=== PATIENT | female | born 1955 | race Caucasian/White ===

== ENCOUNTER 2017-07-16 00:22 | Emergency (ER) | payer MEDICAID, MEDICARE, OTHER ==
[~2017-07-16] VITALS: Ht 172.7 cm; Wt 108.9 kg
--- NOTE | 2017-07-16 00:30 | NUR ---
to bed 3 bib [facility] ambulance c/o cough with bilateral breast pain when coughing x9 weeks. pt aaox4 no acute distress noted, resp even and unlabored. lung sounds clear bilaterally on auscultation. er md at bedside to jeniffer pt.
[2017-07-16] MEDS ORDERED: ALBUTEROL FS 2.5 MG/0.5 ML VIAL.NEB NEB ONE (01:00)
[2017-07-16] MEDS ORDERED: ALBUTEROL FS 2.5 MG/0.5 ML VIAL.NEB ONE (01:01)
--- NOTE | 2017-07-16 01:01 | NUR ---
RT AT BEDSIDE FOR HHN TX.
--- NOTE | 2017-07-16 02:01 | NUR ---
ETA 90 MIN; TRIP #[id number]
--- NOTE | 2017-07-16 03:58 | NUR ---
TRANSPORT AT BEDSIDE REPORT GIVEN TO EMT.
[2017-07-16 04:10] VITALS: BP 121/65
== END 2017-07-16 04:10 | disposition home or self-care (01) ==
LOC: ER 00:25
DX: R05 Cough (principal); Z88.0 Allergy status to penicillin; Z88.2 Allergy status to sulfonamides; Z88.8 Allergy status to other drugs, medicaments and biological substances; Z91.013 Allergy to seafood
CPT/HCPCS: 71010; 94640; 99283; A4606; Z7610

== ENCOUNTER 2019-05-30 00:52 | Emergency (ER) | payer MEDICAID, OTHER ==
[~2019-05-30] VITALS: Ht 170.2 cm; Wt 107.0 kg
--- NOTE | 2019-05-30 01:00 | NUR ---
[facility]IBA FOR EVALUATION OF LOWER BACK AND BLE PAIN AND INABILITY TO AMBULATE X 2 WEEKS.
[2019-05-30] MEDS ORDERED: HYDROCODONE/APAP 10/325MG 1 EA TABLET ONE (01:28)
[2019-05-30] MEDS ORDERED: ONDANSETRON 4 MG TAB.RAPDIS ONE (01:28)
[2019-05-30] MEDS ORDERED: ONDANSETRON 4 MG TAB.RAPDIS SL ONE (01:30)
[2019-05-30] MEDS ORDERED: HYDROCODONE/APAP 10/325MG 1 EA TABLET PO ONE (01:30)
--- NOTE | 2019-05-30 01:31 | NUR ---
PT WAS PICKED UP FOR CT
[2019-05-30 03:16] LABS: BASOPHILS # (AUTO) 0.1 /CMM (0.0-0.2); BASOPHILS % (AUTO) 0.8 % (0.0-2.0); EOSINOPHILS % (AUTO) 2.7 % (0.0-6.0); HEMATOCRIT 41 % (33-45); HEMOGLOBIN 14.4 g/dL (11.5-14.8); LYMPHOCYTES % (AUTO) 22.6 % (20.0-44.0); MEAN CORPUSCULAR HGB CONC 35 g/dl (31.0-36.0); MEAN CORPUSCULAR VOLUME 95 fL (82-100); MONOCYTES # (AUTO) 0.7 /CMM (0.1-1.30); MONOCYTES % (AUTO) 7.5 % (2.0-12.0); NEUTROPHILS # (AUTO) 5.9 /CMM (1.8-8.9); NEUTROPHILS % (AUTO) 66.4 % (43.0-81.0); PLATELET COUNT (AUTO) 208 /CMM (150-450); RED BLOOD CELL COUNT(AUTO) 4.34 MIL/uL (4.0-5.2); WHITE BLOOD COUNT (AUTO) 8.8 K/uL (4.3-11.0)
--- NOTE | 2019-05-30 03:30 | NUR ---
18G PIV STARTED ON RAC W/ GOOD BLOOD DRAW.
[2019-05-30 03:37] LABS: CALCIUM, SERUM 9.3 mg/dL (8.5-10.1); CREATININE 0.8 mg/dL (0.6-1.3); POTASSIUM 3.4 mmol/L (3.5-5.1)
[2019-05-30] MEDS ORDERED: MORPHINE SULFATE INJ 2 MG/ML DISP.SYRIN ONE (03:49)
[2019-05-30] MEDS ORDERED: ONDANSETRON HCL/PF 4 MG/2 ML VIAL ONE (03:49)
[2019-05-30] MEDS ORDERED: POTASSIUM CHLORIDE 20 MEQ TAB.PRT.SR PO ONE ×2 (03:49→04:00)
[2019-05-30] MEDS ORDERED: MORPHINE SULFATE INJ 2 MG/ML DISP.SYRIN IV ONE (04:00)
[2019-05-30] MEDS ORDERED: ONDANSETRON HCL/PF - ER 4 MG/2 ML VIAL IV ONE (04:00)
--- NOTE | 2019-05-30 04:40 | NUR ---
PT ACCEPTED AT [facility] ROOM 303-A. NURSE IS JAYLAN. NUMBER FOR REPORT . ACCEPTING PA IS TRAY. ETA FOR AMBULANCE IS [id number] AND COMPANY WILL BE [employer].
--- NOTE | 2019-05-30 05:17 | NUR ---
REPORT GIVEN TO JAYLAN AT [facility]
--- NOTE | 2019-05-30 05:29 | NUR ---
PT WAS PICKED UP BY [facility] IN STABLE CONDITION AND WAS TRANSFERRED TO [facility]
[2019-05-30 05:30] VITALS: BP 133/75
== END 2019-05-30 05:34 | disposition short-term general hospital (02) ==
LOC: ER 00:53
DX: M48.061 Spinal stenosis, lumbar region without neurogenic claudication (principal); E87.6 Hypokalemia; G20 Parkinson's disease; G62.9 Polyneuropathy, unspecified; F31.9 Bipolar disorder, unspecified; I10 Essential (primary) hypertension; E78.5 Hyperlipidemia, unspecified; Z88.0 Allergy status to penicillin; Z88.2 Allergy status to sulfonamides; Z88.8 Allergy status to other drugs, medicaments and biological substances; Z91.013 Allergy to seafood
CPT/HCPCS: 36415; 71045; 72131; 80048; 85025; 85730; 93005; 96374; 96375; 99285; J2270; J2405; Q0162

== ENCOUNTER 2019-08-03 03:30 | Emergency (ER) | payer OTHER ==
[~2019-08-03] VITALS: Ht 170.2 cm; Wt 105.2 kg
--- NOTE | 2019-08-03 03:35 | NUR ---
PT BIB PA WITH A C/O RT HIP PAIN S/P BACK SX ON L3-5 2 MONTHS AGO. PT STATED THAT THE PAIN IS PROGRESSIVELY GETTING WORSE AND IS UNBEARABLE TODAY. PT STATED THAT SHE HAD TYLENOL 1GM LAST NIGHT AT 1999. PT MOVED FROM THE [facility]ULANCE [facility] TO THE ER [facility] WITH ASSISTANCE. PT IS C/O WEIGHT BEARING PAIN ON THE RT HIP AND PAIN WITH PALPATION.
--- NOTE | 2019-08-03 03:45 | NUR ---
PT LEFT FOR CT VIA [facility]
[2019-08-03] MEDS: HYDROCODONE/APAP 5/325MG 1 EACH TABLET PO ONE (04:00)
--- NOTE | 2019-08-03 04:05 | NUR ---
PT RETURNED FROM CT.
[2019-08-03] MEDS ORDERED: HYDROCODONE/APAP 5/325MG 1 EACH TABLET ONE (04:24)
--- NOTE | 2019-08-03 04:26 | NUR ---
PT REC'D MEDICATION ORDERED.
--- NOTE | 2019-08-03 05:50 | NUR ---
[facility] ETA 0900.
--- NOTE | 2019-08-03 06:18 | NUR ---
PT APPEARS TO BE RESTING COMFORTABLY WITH NO S/S OF PAIN OR DISTRESS. WILL CONTINUE TO MONITOR THE PT.
--- NOTE | 2019-08-03 06:19 | NUR ---
BREAKFAST TRAY ORDERED.
--- NOTE | 2019-08-03 06:55 | NUR ---
PT AMBULATED TO THE BATHROOM WITH ASSISTANCE.
--- NOTE | 2019-08-03 07:08 | NUR ---
PT WAS ASSISTED BACK TO ER 4.
--- NOTE | 2019-08-03 07:25 | NUR ---
REPORT GIVEN TO JOHANA ZARCO FOR [facility].
--- NOTE | 2019-08-03 07:28 | NUR ---
RECEIVED REPORT FROM ALEJANDRINA ALVAREZ FOR [facility], PT IS AAOX3, NOT IN RESPIRATORY DISTRESS, V/S STABLE, AWAITING [facility]ANZ FOR PT DISCHARGED AND TRANSPORT.
[2019-08-03 09:50] VITALS: BP 129/72
--- NOTE | 2019-08-03 09:50 | NUR ---
REPORT GIVEN TO EMT FOR PT TRANSFER.
== END 2019-08-03 09:51 ==
LOC: ER 03:32
DX: M16.11 Unilateral primary osteoarthritis, right hip (principal); G20 Parkinson's disease; I10 Essential (primary) hypertension; F31.9 Bipolar disorder, unspecified; F41.9 Anxiety disorder, unspecified; E03.9 Hypothyroidism, unspecified; Z88.0 Allergy status to penicillin; Z88.2 Allergy status to sulfonamides; Z88.6 Allergy status to analgesic agent; Z91.013 Allergy to seafood; Z88.9 Allergy status to unspecified drugs, medicaments and biological substances
CPT/HCPCS: 73700-TC

== ENCOUNTER 2019-11-13 23:18 | Emergency (ER) | payer OTHER ==
[~2019-11-13] VITALS: Ht 170.2 cm; Wt 104.3 kg
--- NOTE | 2019-11-13 23:30 | NUR ---
SARAH FROM [facility] C/O RLQ PAIN, PELVIC PAIN WITH BLEEDING X2 WEEKS TOOK MOTRIN 600MG @1800 WITH MINIMAL RELIEF. PLACED ON MONITOR AND PULSE OX. VSS. AWAITING MD FOR EVAL.
[2019-11-13] MEDS ORDERED: MORPHINE SULFATE INJ 4 MG/ML DISP.SYRIN ONE (23:43)
[2019-11-13] MEDS ORDERED: ONDANSETRON HCL/PF 4 MG/2 ML VIAL ONE (23:43)
[2019-11-14] MEDS ORDERED: MORPHINE SULFATE INJ 2 MG/ML DISP.SYRIN IV ONE
[2019-11-14] MEDS ORDERED: IV NS 0.9% 1,000 ML BAG IV ONE
[2019-11-14] MEDS ORDERED: ONDANSETRON HCL/PF 4 MG/2 ML VIAL IVP ONE
[2019-11-14 00:04] LABS: APPEARANCE,URINE Clear (CLEAR); BILIRUBIN,URINE Negative (NEGATIVE); BLOOD, URINE Trace-intact Ery/uL (NEGATIVE); COLOR,URINE Yellow (YELLOW); KETONES,URINE Negative (NEGATIVE); LEUKOCYTE ESTERASE ,URINE Moderate (NEGATIVE); NITRITE, URINE Positive (NEGATIVE); PROTEIN,URINE Negative (NEGATIVE); UGLUCOSE Negative (NEGATIVE); UROBILINOGEN,URINE 0.2 EU/dL (0.2)
[2019-11-14 00:06] LABS: BASOPHILS # (AUTO) 0.1 /CMM (0.0-0.2); BASOPHILS % (AUTO) 0.7 % (0.0-2.0); EOSINOPHILS % (AUTO) 4.6 % (0.0-6.0); HEMATOCRIT 40 % (33-45); HEMOGLOBIN 13.3 g/dL (11.5-14.8); LYMPHOCYTES # (AUTO) 2.2 /CMM (0.8-4.8); LYMPHOCYTES % (AUTO) 27.3 % (20.0-44.0); MEAN CORPUSCULAR HGB CONC 34 g/dl (31.0-36.0); MEAN CORPUSCULAR VOLUME 91 fL (82-100); MONOCYTES # (AUTO) 0.6 /CMM (0.1-1.30); MONOCYTES % (AUTO) 7.1 % (2.0-12.0); NEUTROPHILS # (AUTO) 4.8 /CMM (1.8-8.9); NEUTROPHILS % (AUTO) 60.3 % (43.0-81.0); PLATELET COUNT (AUTO) 248 /CMM (150-450); RED BLOOD CELL COUNT(AUTO) 4.36 MIL/uL (4.0-5.2); WHITE BLOOD COUNT (AUTO) 7.9 K/uL (4.3-11.0)
--- NOTE | 2019-11-14 00:10 | NUR ---
LABS AND URINE SENT
[2019-11-14 00:16] LABS: CALCIUM, SERUM 9.2 mg/dL (8.5-10.1); CREATININE 0.8 mg/dL (0.6-1.3); POTASSIUM 3.8 mmol/L (3.5-5.1)
[2019-11-14 00:21] LABS: ALBUMIN 3.4 g/dL (3.4-5.0); BILIRUBIN,TOTAL 0.2 mg/dL (0.2-1.0); TOTAL PROTEIN, SERUM 7.1 g/dL (6.4-8.2)
[2019-11-14 00:23] LABS: BACTERIA,URINE Many /HPF (None Seen); SQUAMOUS EPITHELIAL CELL,UR Few /HPF (None Seen); WBC,URINE 21-50 /HPF (0-3)
--- NOTE | 2019-11-14 00:53 | NUR ---
back from ct
--- NOTE | 2019-11-14 01:15 | NUR ---
Patient is resting comfortably in bed. Easily aroused. VSS.
[2019-11-14] MEDS ORDERED: CEFTRIAXONE 1GM BAG (ER ONLY) 50 ML IV ONE (01:21)
[2019-11-14] MEDS ORDERED: PHENAZOPYRIDINE HCL 200 MG TABLET ONE (01:21)
[2019-11-14] MEDS ORDERED: CEFTRIAXONE 1GM BAG (ER ONLY) 1 GM/50 ML PIGGYBACK IV ONE (01:30)
[2019-11-14] MEDS ORDERED: PHENAZOPYRIDINE HCL 200 MG TABLET PO ONE (01:30)
--- NOTE | 2019-11-14 01:37 | NUR ---
CALL THE CAR CALLED FOR TRANPORT. PENDING ETA
--- NOTE | 2019-11-14 03:38 | NUR ---
Patient is resting comfortably in bed with eyes closed. Easily aroused. VSS
--- NOTE | 2019-11-14 03:49 | NUR ---
CALLED LAURIE HINES TO GIVE REPORT. NO ANSWER
--- NOTE | 2019-11-14 05:00 | NUR ---
PT WHEELED TO THE BATHROOM. ASSISTED BY [place]
--- NOTE | 2019-11-14 05:07 | NUR ---
PT WHEELED BACK TO BED
--- NOTE | 2019-11-14 07:15 | NUR ---
REPORT GIVEN TO LAURIE TATE
--- NOTE | 2019-11-14 07:24 | NUR ---
REPORT GIVEN TO LINDA. PT STABLE FOR TRANSFER
[2019-11-14 07:31] VITALS: BP 121/89
--- NOTE | 2019-11-14 07:31 | NUR ---
Patient discharged to facility in stable condition. Written and verbal after care instructions given. Patient verbalizes understanding of instruction.
== END 2019-11-14 07:32 ==
LOC: ER 23:25
DX: N39.0 Urinary tract infection, site not specified (principal); I10 Essential (primary) hypertension; F41.9 Anxiety disorder, unspecified; E03.9 Hypothyroidism, unspecified; G20 Parkinson's disease; Z88.0 Allergy status to penicillin; Z88.2 Allergy status to sulfonamides; Z88.8 Allergy status to other drugs, medicaments and biological substances; Z91.013 Allergy to seafood
CPT/HCPCS: 36415; 74176; 80048; 80076; 81001; 85025; 85730; 87086; 96365; 96375; 99285; J0696; J2270; J2405; J7030; 81000-TC

== ENCOUNTER 2020-07-02 00:39 | Emergency (ER) | payer OTHER ==
[~2020-07-02] VITALS: Ht 170.2 cm; Wt 127.0 kg
--- NOTE | 2020-07-02 00:52 | NUR ---
RECEIVED PATIENT FROM [facility], A/0 X3, COMPLAINTS OF RIGHT HIP PAIN, PAIN SCALE OF 9/10, AMBULATORY WITH ASSIST.
[2020-07-02] MEDS ORDERED: MORPHINE SULFATE INJ 2 MG/ML DISP.SYRIN IM ONE (01:00)
[2020-07-02] MEDS ORDERED: MORPHINE SULFATE INJ 4 MG/ML DISP.SYRIN ONE (01:17)
--- NOTE | 2020-07-02 01:35 | NUR ---
TRANSPORT CALLED ([facility]) ETA [id number]
--- NOTE | 2020-07-02 02:41 | NUR ---
REPORT GIVEN TO GIRISH HILL AND LAURIE HINES (FACILITY)
[2020-07-02 02:57] VITALS: BP 134/78
== END 2020-07-02 03:00 ==
LOC: ER 00:41
DX: G89.29 Other chronic pain (principal); F17.200 Nicotine dependence, unspecified, uncomplicated; I10 Essential (primary) hypertension; F41.9 Anxiety disorder, unspecified; F31.9 Bipolar disorder, unspecified; E03.9 Hypothyroidism, unspecified; G62.9 Polyneuropathy, unspecified; M79.7 Fibromyalgia; G20 Parkinson's disease; Z88.0 Allergy status to penicillin; Z88.2 Allergy status to sulfonamides; Z88.8 Allergy status to other drugs, medicaments and biological substances; Z91.013 Allergy to seafood
CPT/HCPCS: 96372; 99283; J2270

== ENCOUNTER 2021-07-06 00:16 | Emergency (ER) | payer MEDICARE, OTHER ==
[~2021-07-06] VITALS: Ht 172.7 cm; Wt 113.9 kg
--- NOTE | 2021-07-06 00:28 | NUR ---
PT AAOX4. [facility]IBRA FROM [facility]. C/O LOWER BACK PAIN X4 WEEKS. PER RA, PT FELL 4 WEEKS AGO, SEEN BY PMD, NO INJURY OR FRACTURE. PT STARTED HAVING LOWER BACK PAIN X1 HR FLAME HARDENER. PLACED IN BED 2 ON MONITOR AND PULSE OX. AWAITING ER MD FOR EVAL.
--- NOTE | 2021-07-06 00:29 | NUR ---
LAURIE LOGAN: [id number] [facility] # [phone]
[2021-07-06] MEDS ORDERED: MORPHINE SULFATE INJ 2 MG/ML DISP.SYRIN ONE (00:42)
[2021-07-06] MEDS ORDERED: MORPHINE SULFATE INJ 4 MG/ML DISP.SYRIN ONE ×2 (00:43→10:57)
--- NOTE | 2021-07-06 00:45 | NUR ---
RADIOLOGY AT BEDSIDE
[2021-07-06] MEDS ORDERED: MORPHINE SULFATE INJ 2 MG/ML DISP.SYRIN IM ONE (01:00)
--- NOTE | 2021-07-06 01:48 | NUR ---
CALLED [facility] FOR X RAY READ
--- NOTE | 2021-07-06 02:21 | NUR ---
CALLED LAURIE HINES AND GAVE REPORT TO ALBERT
--- NOTE | 2021-07-06 02:51 | NUR ---
CONFIRMATION NUMBER IS [id number]# [facility] AWAITING A CALL BACK WHEN HE HAS A VENDOR AND ETA FOR PT TRANSPORT.
--- NOTE | 2021-07-06 05:29 | NUR ---
called call the car and spoke to Lucita. the staff are still working on the transportation.
--- NOTE | 2021-07-06 05:49 | NUR ---
[facility] IS TO BE HERE AT 1600 FOR DISCHARGE TRANSPORT BACK TO FACILITY. WILL CALL IF SOONER ETA BECOMES AVAILABLE.
[2021-07-06] MEDS ORDERED: MORPHINE SULFATE INJ 2 MG/ML DISP.SYRIN IV ONE (10:30)
--- NOTE | 2021-07-06 10:44 | NUR ---
ADVISED PT AND EXPLAINED WE ARE ARRANGING THE TRANSPORT FROM HOSPITAL TO [facility], GIVEN WATER AND WARM BLANKET, MADE COMFORTABLE WHILE WAITING FOR THE TRANSPORT RIDE TO FACILITY
--- NOTE | 2021-07-06 11:10 | NUR ---
MD PEDERSEN CARRIED OUT MORPHINE TO TREAT PAIN, NO ADVERSE SIDE EFFECTS NOTED, TOLERATED WELL AND RESTING PEACEFULLY IN BED UNTIL D/C. EXPLAINED WE ARE AWAITING THE TRANSPORT AT THIS TIME AND SHE WILL BE GOING TO [facility]UST[facility] FACILITY SOON POSSIBLE, MADE COMFORTABLE, CALL LIGHT IN REACH, HELPED DRINK WATER.
--- NOTE | 2021-07-06 13:18 | NUR ---
CALLED [id number] [phone] [facility] WILL TRANSPORT AT 1430 PER CRYSTAL.
--- NOTE | 2021-07-06 15:03 | NUR ---
CALLED [facility] [phone] NEW ETA 1545 PER MAJOR.
--- NOTE | 2021-07-06 15:58 | NUR ---
[facility] arrived 1555, patient brief cleaned and changed, provided water and cranberry juice no aspiration noted, refused to eat breakfast and lunch, encouraged fluids compliant, safe transfer from hospital bed to [facility] and to ambulance vehicle with 2 person transfer. her permanent residence of the [facility] notified and prepared for her return.
[2021-07-06 16:03] VITALS: BP 138/82
== END 2021-07-06 16:04 ==
LOC: ER 00:17
DX: G89.29 Other chronic pain (principal); M25.552 Pain in left hip; E66.01 Morbid (severe) obesity due to excess calories; Z68.38 Body mass index [BMI] 38.0-38.9, adult; F41.9 Anxiety disorder, unspecified; E03.9 Hypothyroidism, unspecified; G20 Parkinson's disease; M79.7 Fibromyalgia; F17.200 Nicotine dependence, unspecified, uncomplicated; Z88.0 Allergy status to penicillin; Z88.2 Allergy status to sulfonamides; Z88.8 Allergy status to other drugs, medicaments and biological substances; Z91.013 Allergy to seafood
CPT/HCPCS: 73503; 96372; 96374; 99285; J2270 ×3; 73502

== ENCOUNTER 2022-02-20 04:37 | Emergency (ER) | payer MEDICARE, OTHER ==
[~2022-02-20] VITALS: Ht 170.2 cm; Wt 79.4 kg
[2022-02-20 04:40] VITALS: BP 142/61
--- NOTE | 2022-02-20 04:42 | NUR ---
Note katlynone in EDM - 02/20/22 at 0456 by MEGAN BIBS C/O DIFFUSED ABDOMINAL PAIN SINCE 12AM. -N/V/D +HEADACHE. 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 PATIENT ALERT AND ORIENTED X3. AMBULATORY WITH NON LABORED BREATING IN BED 02 ON MONITOR AND POX, AWAITING MD MORENO.
--- NOTE | 2022-02-20 04:46 | NUR ---
Skinny dorman in [facility] - 02/20/22 at 0456 by MEGAN MD AT BEDSIDE
--- NOTE | 2022-02-20 05:13 | NUR ---
CALLED [facility] FOR TRANSPORT , ETA 40MIN.
--- NOTE | 2022-02-20 05:42 | NUR ---
[facility] DELAYED 0730 FOR PICKUP.
--- NOTE | 2022-02-20 06:49 | NUR ---
PT PICKED UP BY [facility] FOR TRANSPORT BACK TO FACILITY. VSS.
== END 2022-02-20 06:50 | disposition home or self-care (01) ==
LOC: ER 04:45
DX: G89.29 Other chronic pain (principal); M25.551 Pain in right hip; M25.512 Pain in left shoulder; M25.511 Pain in right shoulder; F31.9 Bipolar disorder, unspecified; F41.9 Anxiety disorder, unspecified; E03.9 Hypothyroidism, unspecified; F17.200 Nicotine dependence, unspecified, uncomplicated; Z88.8 Allergy status to other drugs, medicaments and biological substances; Z86.69 Personal history of other diseases of the nervous system and sense organs

== ENCOUNTER 2022-08-04 00:29 | Emergency (ER) | payer MEDICARE, OTHER ==
[~2022-08-04] VITALS: Ht 165.1 cm; Wt 98.9 kg
--- NOTE | 2022-08-04 00:50 | NUR ---
SARAH FROM [facility] FOR C/O WEAKNESS AND POOR APPETITE X 3 DAYS. insurance follow up representative ALSO REPORTED "RED URINE". PT WITH C/O R HIP PAIN DUE TO AN OLD FX WITH NO SX. PT WAS ASSISTED TO BED 2 ER. VSS. WILL CONT TO MONITOR.
[2022-08-04] MEDS ORDERED: ONDANSETRON HCL/PF 4 MG/2 ML VIAL ONE (00:56)
--- NOTE | 2022-08-04 00:56 | NUR ---
BLOOD COLLECTED AND SENT TO LAB
--- NOTE | 2022-08-04 00:58 | NUR ---
EMT AT BEDSIDE FOR EKG
[2022-08-04] MEDS ORDERED: ONDANSETRON HCL/PF 4 MG/2 ML VIAL IVP ONE (01:00)
--- NOTE | 2022-08-04 01:20 | NUR ---
urine colleted, sent to lab
--- NOTE | 2022-08-04 01:27 | NUR ---
US TECH AT BED SIDE
[2022-08-04 01:45] LABS: BASOPHILS % (AUTO) 0.1 % (0.0-2.0); HEMATOCRIT 38 % (33-45); LYMPHOCYTES # (AUTO) 0.5 K/uL (0.8-4.8); LYMPHOCYTES % (AUTO) 5.8 % (20.0-44.0); MEAN CORPUSCULAR HGB CONC 34 g/dl (31.0-36.0); MEAN CORPUSCULAR VOLUME 94 fL (82-100); MONOCYTES # (AUTO) 0.8 K/uL (0.1-1.30); MONOCYTES % (AUTO) 9.8 % (2.0-12.0); NEUTROPHILS # (AUTO) 7.1 K/uL (1.8-8.9); NEUTROPHILS % (AUTO) 83.3 % (43.0-81.0); PLATELET COUNT (AUTO) 176 K/uL (150-450); RED BLOOD CELL COUNT(AUTO) 4.07 MIL/uL (4.0-5.2); WHITE BLOOD COUNT (AUTO) 8.5 K/uL (4.3-11.0)
[2022-08-04 02:03] LABS: BILIRUBIN,URINE 1+ (NEGATIVE); COLOR,URINE YELLOW (YELLOW); LEUKOCYTE ESTERASE ,URINE NEGATIVE (NEGATIVE); NITRITE, URINE NEGATIVE (NEGATIVE); PROTEIN,URINE NEGATIVE (NEGATIVE); UGLUCOSE NEGATIVE (NEGATIVE)
--- NOTE | 2022-08-04 02:04 | NUR ---
PT WAS TAKEN TO CT
--- NOTE | 2022-08-04 02:10 | NUR ---
PT REFUSED CT SCAN DUE TO CLAUSTROPHOBIA. MADE AWARE.
--- NOTE | 2022-08-04 02:13 | NUR ---
PT RETURNED FROM CT
[2022-08-04 02:29] LABS: ALANINE AMINOTRANSFERASE 67 U/L (12-78); ALBUMIN 3.2 g/dL (3.4-5.0); ALKALINE PHOSPHATASE 265 U/L (46-116); ASPARTATE AMINOTRANSFERASE 76 U/L (15-37); BILIRUBIN,DIRECT 1.3 mg/dL (0.0-0.2); BILIRUBIN,TOTAL 2.2 mg/dL (0.2-1.0); CALCIUM, SERUM 8.9 mg/dL (8.5-10.1); CARBON DIOXIDE 28 mmol/L (21-32); CHLORIDE 103 mmol/L (98-107); CREATININE 0.8 mg/dL (0.6-1.3); GLUCOSE 107 mg/dL (74-106); POTASSIUM 3.1 mmol/L (3.5-5.1); SODIUM SERUM 137 mmol/L (136-145); TOTAL PROTEIN, SERUM 6.9 g/dL (6.4-8.2); UREA NITROGEN, BLOOD 14 mg/dL (7-18)
[2022-08-04] MEDS ORDERED: POTASSIUM CHLORIDE 20 MEQ TAB.PRT.SR PO ONE ×2 (03:00→03:55)
--- NOTE | 2022-08-04 03:14 | NUR ---
[facility] ETA 75-90 MINS
--- NOTE | 2022-08-04 03:52 | NUR ---
[facility] AT BEDSIDE FOR PATIENT TRANSPORT BACK TO FACILITY.
[2022-08-04 04:02] VITALS: BP 120/60
[2022-08-04 04:20] LABS: LIPASE 87 U/L (73-393)
== END 2022-08-04 04:20 ==
LOC: ER 00:31
DX: R11.10 Vomiting, unspecified (principal); R19.7 Diarrhea, unspecified; E87.6 Hypokalemia; R53.1 Weakness; Z20.822 Contact with and (suspected) exposure to COVID-19; R94.31 Abnormal electrocardiogram [ECG] [EKG]; Z88.2 Allergy status to sulfonamides; Z88.0 Allergy status to penicillin; Z91.013 Allergy to seafood; E66.01 Morbid (severe) obesity due to excess calories; Z68.36 Body mass index [BMI] 36.0-36.9, adult; E11.9 Type 2 diabetes mellitus without complications; E11.40 Type 2 diabetes mellitus with diabetic neuropathy, unspecified; E03.9 Hypothyroidism, unspecified; G89.29 Other chronic pain; F31.9 Bipolar disorder, unspecified; I11.9 Hypertensive heart disease without heart failure; G20 Parkinson's disease; M79.7 Fibromyalgia
CPT/HCPCS: 99285; 96374; 93971; 87426; 93005; 85025; 80048; 83690; 80076; 81003; 36415; 84484; 85730; J2405; C9803